=== PATIENT | female | born 1960 | race African-American/Black ===

== ENCOUNTER 2017-09-15 08:43 | Emergency (ER) | payer SELFPAY, OTHER | END 2017-09-15 17:24 | disposition left against medical advice (07) | LOC: E/R 08:43 | DX: Z53.21 Procedure and treatment not carried out due to patient leaving prior to being seen by health care provider (principal) ==

== ENCOUNTER 2018-08-30 18:34 | Emergency (ER) | payer OTHER ==
[2018-08-30 21:00] LABS: WHITE BLOOD COUNT 8.1 10^3/ul (4.8-10.8)
[2018-08-30 21:00] LABS: ADD MAN DIFF? NO; BASOPHILS % 0.4 % (0.0-2.0); EOSINOPHILS # 0.1 10^3/ul (0.0-0.5); EOSINOPHILS % 1.4 % (0.0-7.0); HEMATOCRIT 38.3 % (37.0-47.0); HEMOGLOBIN 12.6 g/dl (12.0-16.0); LYMPHOCYTES # 1.8 10^3/ul (0.8-2.9); LYMPHOCYTES % 21.5 % (15.0-51.0); MEAN CORPUSCULAR HEMOGLOBIN 28.5 pg (29.0-33.0); MEAN CORPUSCULAR HGB CONC 32.9 g/dl (32.0-37.0); MEAN CORPUSCULAR VOLUME 86.7 fl (82.0-101.0); MEAN PLATELET VOLUME 9.6 fl (7.4-10.4); MONOCYTE # 0.4 10^3/ul (0.3-0.9); MONOCYTES % 5.2 % (0.0-11.0); NEUTROPHIL # 5.8 10^3/ul (1.6-7.5); NEUTROPHILS % 70.9 % (39.0-77.0); PLATELET COUNT 272 10^3/UL (140-415); RED BLOOD COUNT 4.42 10^6/ul (4.20-5.40); RED CELL DISTRIBUTION WIDTH 12.7 % (11.5-14.5)
[2018-08-30] MEDS: NICARDipine HCL 30 MG CAPSULE PO (21:00)
[2018-08-30 21:16] LABS: ALANINE AMINOTRANSFERASE 17 IU/L (13-69); ALBUMIN 4.5 g/dl (3.3-4.9); ALBUMIN/GLOBULIN RATIO 1.25; ALKALINE PHOSPHATASE 75 IU/L (42-121); ANION GAP 10 (5-13); ASPARTATE AMINO TRANSFERASE 24 IU/L (15-46); BILIRUBIN,INDIRECT 0.1 mg/dl (0-1.1); BILIRUBIN,TOTAL 0.1 mg/dl (0.2-1.3); BLOOD UREA NITROGEN 10 mg/dl (7-20); CALCIUM 9.8 mg/dl (8.4-10.2); CARBON DIOXIDE 27 mmol/L (21-31); CHLORIDE 98 mmol/L (97-110); CREATININE 0.87 mg/dl (0.44-1.00); Estimated GFR > 60 mL/min (>60); GLUCOSE 121 mg/dl (70-220); SODIUM 135 mmol/L (135-144); TOTAL PROTEIN 8.1 g/dl (6.1-8.1)
[2018-08-30 21:23] LABS: INR 0.89; PROTIME 12.2 Sec (11.9-14.9)
[2018-08-30 21:24] LABS: PARTIAL THROMBOPLASTIN TIME 30.1 Sec (23.0-35.0)
[2018-08-30 21:28] LABS: B-TYPE NATRIURETIC PEPTIDE 113 PG/ML (0-125); TROPONIN-I < 0.012 ng/ml (0.000-0.120)
[2018-08-30] MEDS: ASPIRIN 325 MG TAB PO (22:17)
== END 2018-08-30 22:22 | disposition home or self-care (01) ==
LOC: FTE 18:34
DX: I10 Essential (primary) hypertension (principal); J32.9 Chronic sinusitis, unspecified; R07.9 Chest pain, unspecified
CPT/HCPCS: 36415; 71046; 80053; 83880; 84484; 85025; 85610; 85730; 93005; 99285-25

== ENCOUNTER 2018-11-04 03:11 | Emergency (ER) | payer OTHER ==
[2018-11-04 04:26] LABS: ADD MAN DIFF? NO
[2018-11-04 04:27] LABS: WHITE BLOOD COUNT 6.2 10^3/ul (4.8-10.8)
[2018-11-04 04:27] LABS: BASOPHILS % 0.3 % (0.0-2.0); EOSINOPHILS # 0.1 10^3/ul (0.0-0.5); EOSINOPHILS % 2.1 % (0.0-7.0); HEMATOCRIT 37.4 % (37.0-47.0); HEMOGLOBIN 12.1 g/dl (12.0-16.0); LYMPHOCYTES # 1.8 10^3/ul (0.8-2.9); LYMPHOCYTES % 29.5 % (15.0-51.0); MEAN CORPUSCULAR HEMOGLOBIN 27.8 pg (29.0-33.0); MEAN CORPUSCULAR HGB CONC 32.4 g/dl (32.0-37.0); MEAN PLATELET VOLUME 9.4 fl (7.4-10.4); MONOCYTE # 0.5 10^3/ul (0.3-0.9); MONOCYTES % 7.6 % (0.0-11.0); NEUTROPHIL # 3.7 10^3/ul (1.6-7.5); NEUTROPHILS % 60.2 % (39.0-77.0); PLATELET COUNT 222 10^3/UL (140-415); RED BLOOD COUNT 4.35 10^6/ul (4.20-5.40); RED CELL DISTRIBUTION WIDTH 13.2 % (11.5-14.5)
[2018-11-04 04:45] LABS: ANION GAP 11 (5-13); BLOOD UREA NITROGEN 15 mg/dl (7-20); CALCIUM 10.3 mg/dl (8.4-10.2); CARBON DIOXIDE 31 mmol/L (21-31); CHLORIDE 99 mmol/L (97-110); CREATININE 0.97 mg/dl (0.44-1.00); Estimated GFR > 60 mL/min (>60); GLUCOSE 135 mg/dl (70-220); POTASSIUM 4.4 mmol/L (3.5-5.1); SODIUM 141 mmol/L (135-144)
[2018-11-04 04:57] LABS: TROPONIN-I < 0.012 ng/ml (0.000-0.120)
[2018-11-04 05:28] LABS: FREE T4 (FREE THYROXINE) 1.24 ng/dl (0.64-1.79)
== END 2018-11-04 06:19 | disposition home or self-care (01) ==
LOC: E/R 03:11
DX: R00.2 Palpitations (principal); R40.2142 Coma scale, eyes open, spontaneous, at arrival to emergency department; R40.2362 Coma scale, best motor response, obeys commands, at arrival to emergency department; R40.2252 Coma scale, best verbal response, oriented, at arrival to emergency department; I10 Essential (primary) hypertension; Z79.82 Long term (current) use of aspirin
CPT/HCPCS: 71045; 80048; 84439; 84443; 84484; 85025; 93005; 99284-25